=== PATIENT | male | born 1955 | race African-American/Black ===

== ENCOUNTER 2016-07-10 13:36 | Inpatient (IN) | payer MEDICARE, OTHER ==
--- NOTE | ~2016-07-10 | DS ---
Discharge Summary [facility] [address] [facility] [place]. [address] NAME: HALEY RESENDEZ JR : 51 STATUS : DIS IN PAT#: [id number] AGE: 60 ADM/REG DATE : 07/11/16 MR#: [id number] REPORT SERV DATE: 07/16/16 DICTATED BY: RAMYA ELLIOTT DATE: 07/15/16 REPORT STATUS : Draft TRANSCRIBED BY: MODErasto DATE: 07/15/16 ADMISSION DATE: 07/11/2016 DISCHARGE DATE: 07/15/2016 INDICATION FOR HOSPITALIZATION: Gross hematuria with clot retention. DISCHARGE DIAGNOSES: 1. End-stage renal disease, dialyzing Wednesday, Wednesday, Wednesday at [facility] by left forearm AV fistula. 2. Gross hematuria due to clot retention. 3. Recent cystoscopy with transitional cell cancer of bladder removal on 07/07/2016. 4. Peripheral vascular disease, status post right lower extremity iliac stent. 5. Coronary artery disease, CABG x5 vessels, 2007. 6. Type 2 diabetes mellitus. 7. Anemia. 8. History of bladder cancer. 9. Osteoarthritis. 10.Remote pneumonia. 11.Remote myocardial infarction, 2006. 12.Neuropathy. 13.Dyslipidemia. HOSPITAL COURSE: Mr. Resendez is a 60-year-old male, who is currently dialyzed on Wednesday, Wednesday, Wednesday at [facility] by left forearm AV fistula. He had recently undergone a cystoscopy with transitional cell cancer removed from his bladder on 07/07/2016. He apparently had persistent postop bleeding and was admitted with gross hematuria and clot retention. Dr. Vicente performed cysto with clot evacuation on 07/10/2016 and the retained clot, approximately 250-300 mL, was discarded. He began continuous bladder irrigation and this persisted until there was clearing on 07/15/2016. The catheter was subsequently removed, and he was felt stable for release. During the hospitalization, he tolerated procedures well, including hemodialysis, which was done without heparin therapy. His discharge labs reveal predialysis potassium of 5.3, creatinine 8.85, glucose 132, phosphorus 8.3. Hemoglobin 9.9, WBC 10.4, platelet count 238. DISCHARGE FOLLOWUP: Follow up with Urology as desired. Follow up on dialysis as scheduled. DISCHARGE MEDICATIONS: Amlodipine 10 mg p.o. daily, Lipitor 10 mg q.h.s., Coreg 25 mg p.o. b.i.d., vitamin D 3000 units daily, Neurontin 800 mg three times daily, Glucotrol 10 mg q.h.s., Theragran-M one daily, Renvela 800 mg tablets two with meals. DIET: 2000-calorie ADA renal diet with 1500 mL fluid restriction. ACTIVITY: Will resume per home routine. Discharge Summary [address] [address] NAME: HALEY RESENDEZ : 51 STATUS : DIS IN PAT#: [id number] AGE: 60 ADM/REG DATE : 07/11/16 MR#: [id number] REPORT SERV DATE: 07/16/16 DICTATED BY: RAMYA ELLIOTT DATE: 07/15/16 REPORT STATUS : Draft TRANSCRIBED BY: LETIICA DATE: 07/15/16 ELSA/LETICIA Ramya Elliott M.D. / [id number] CC: Ramya Elliott M.D.
--- NOTE | ~2016-07-10 | HP ---
History And Physical [facility] [address] [place]. [address] NAME: HALEY RESENDEZ JR : 51 STATUS : ADM Jessica PAT#: [id number] AGE: 60 ADM/REG DATE : 07/10/16 MR#: [id number] REPORT SERV DATE: 07/10/16 DICTATED BY: SPARKLE MARVIN DATE: 07/10/16 REPORT STATUS : Draft TRANSCRIBED BY: MODL DATE: 07/10/16 DATE OF ADMISSION: 07/10/2016 CHIEF COMPLAINT: Hematuria. HISTORY OF PRESENT ILLNESS: The patient is a 60-year-old male. He has a past medical history significant for end-stage renal disease, on dialysis Wednesday, Wednesday, Wednesday. He also has a history of coronary disease, status post bypass five to six years ago. He also has diabetes. He presents today for admission postprocedure for hematuria. He is followed by Dr. Vicente, his urologist. On 07/07/2016, he underwent cystoscopy for tumor removal, transitional cell cancer of the bladder. He presented to Dr. Vicente with continued bleeding postprocedure and was admitted for corrective surgery. The patient is currently back in the room on bladder irrigation without any complaints. He states, his dialysis has been going well. He normally gets dialysis Wednesday, Wednesday, and Wednesday, and states he had dialysis today without incident. He has not had any active chest pain complains. Blood sugars have been stable. PAST MEDICAL HISTORY: As covered above. PAST SURGICAL HISTORY: CABG and a fistula placement. HOME MEDICATIONS: Norvasc 10, Lipitor 10, Coreg 25 b.i.d., vitamin D 1000 three at bedtime, Neurontin 800 t.i.d., Glucotrol 10 at bedtime, multivitamin one per day, Renvela 800 with meals. ALLERGIES: NONE. FAMILY HISTORY: Both parents . He believes his father was on dialysis. He is not certain, what his mother passed from. SOCIAL HISTORY: He will drink one beer every two to three days. Previous smoker, quit at the time of his CABG. REVIEW OF SYSTEMS: HEENT: No headache, dizziness, chest pain, palpitations, shortness of breath, cough. He has had some mild bladder pain and hematuria. Otherwise, review of systems 14 point is negative. PHYSICAL EXAMINATION: VITAL SIGNS: Currently pending. GENERAL: He is awake, alert, oriented, no acute distress. HEENT: Normocephalic, atraumatic. Sclerae, nonicteric. NECK: Supple. HEART: Regular rate and rhythm. LUNGS: Clear to auscultation. ABDOMEN: Nontender, nondistended. Positive bowel sounds. History And Physical [address] [address] NAME: HALEY RESENDEZ JR : 51 STATUS : ADM Jessica PAT#: [id number] AGE: 60 ADM/REG DATE : 07/10/16 MR#: [id number] REPORT SERV DATE: 07/10/16 DICTATED BY: SPARKLE MARVIN DATE: 07/10/16 REPORT STATUS : Draft TRANSCRIBED BY: LETICIA DATE: 07/10/16 EXTREMITIES: No clubbing, cyanosis, or edema. LABORATORY DATA: Sodium 139, potassium 4.1, chloride 99, CO2 of 28, BUN and creatinine of 57 and 6.75 with a glucose of 189. Last CBC available was on 07/07/2016, white count 10.7, H and H 13.4 and 42.9, with platelets of 256. ASSESSMENT: Hematuria, postprocedure. PLAN: The patient has already returned from cystoscopy, stable. We will place him on a diabetic diet. Sliding scale insulin if needed. Continue his home medications. Appreciate Renal and Urology input. GRZEGORZ/LETICIA Sparkle Marvin M.D. / [id number] CC: Sparkle Marvin M.D.
--- NOTE | ~2016-07-10 | OP ---
Record Of Operation [facility] [address] [place]. [address] NAME: HALEY RESENDEZ JR : 51 STATUS : ADM Jessica PAT#: [id number] AGE: 60 ADM/REG DATE : 07/10/16 MR#: [id number] REPORT SERV DATE: 07/10/16 DICTATED BY: JUAN KESSLER DATE: 07/10/16 REPORT STATUS : Draft TRANSCRIBED BY: MODL DATE: 07/10/16 DATE OF PROCEDURE: 07/10/2016 PREOPERATIVE DIAGNOSIS: Gross hematuria, clot retention, post TUR bladder tumor. POSTOPERATIVE DIAGNOSIS: Gross hematuria, clot retention, post TUR bladder tumor. PROCEDURES: 1. Cysto with clot evacuation. 2. Cath placement, complex. ANESTHESIA: General endotracheal. SURGEON: Juan Kessler M.D. SPECIMENS: Retained clot (discarded) approximately 250 to 300 mL. DRAINS: One #24, 5 mL three-way Arriaga catheter. IMMEDIATE POSTOP: Stable. DESCRIPTION OF PROCEDURE: The patient was brought in to the cysto suite, given inhalational anesthetic, and placed in lithotomy position. Perineum and genitalia were prepped and draped in sterile fashion. Video cystourethroscopy was then performed using #22 cystoscope and Foroblique lens. Distal urethra was normal. There was an elevated bladder neck, but no evidence of prostatic urethral trauma. The scope was then passed into the bladder. A large volume of retained clot was noted. The clot was evacuated using Ellik evacuators until the irrigant changed from "Port wine" colored to light pink. The scope was then reintroduced. The bladder was carefully inspected. Sites of the resection of the small bladder tumors were intact with no evidence of bladder perforation whatsoever. No more retained clot. At this point, a 0.35 Sensor wire was passed into the bladder and the cystoscope was removed. A #24, three-way Arriaga catheter with 5 mL balloon was then passed over the wire into the bladder with return of pink to clear drainage. The balloon was inflated. Catheter irrigated well confirming proper positioning. The wire was removed and the catheter was hooked to a three-way irrigation. Irrigant returned light pink. The patient was then awakened and sent to recovery in stable condition. MS/LETICIA Juan Kessler M.D. / [id number] Record Of [address] [place]. [address] NAME: HALEY RESENDEZ JR : 51 STATUS : ADM Jessica PAT#: [id number] AGE: 60 ADM/REG DATE : 07/10/16 MR#: [id number] REPORT SERV DATE: 07/10/16 DICTATED BY: JUAN KESSLER DATE: 07/10/16 REPORT STATUS : Draft TRANSCRIBED BY: MODL DATE: 07/10/16 CC: Keo Wagner M.D.
[~2016-07-10 13:36] MED LIST: *UNABLE3; ACCUNEB INH; AMLODIPINE PO; ASA5GR PO; ATORVASTATIN PO; BUM1 PO; CARVEDILOL PO; COREG25 PO; DIABETA5 PO; FERROUS SULF325 M1 PO; FOLIC PO; GLIPIZIDE PO; GLUCOTRO10 PO; LEVITRA2.5 MG PO; LIPITOR10 PO; LISINOPRIL40 MG PO; NAPRELAN500 MG PO; NEUR800 PO; NORV10 PO; NORV5 PO; PLAVIX PO; PRAVACHOL40 MG PO; RENVELA800 MG PO; SPIRIVA INH; THERGRANM PO; TRIGLYCERIDE PO; VENTOLIN HFA INH; VITAMIN D31000 UNIT PO
[2016-07-10 15:00] LABS: A/G RATIO 0.6 (0.7-1.9); ALBUMIN 3.4 G/DL (3.5-5.0); BUN (BLOOD UREA NITROGEN) 57 MG/DL (6-23); CALCIUM, SERUM 9.1 MG/DL (8.5-10.4); CHLORIDE, SERUM 99 MMOL/L (96-112); CO2 (CARBON DIOXIDE) 28 MMOL/L (24-34); CREATININE 6.75 MG/DL (0.70-1.30); GFR AFRICAN AMERICAN 9 ML/MIN (>=60); GFR NON AFRICAN AMERICAN 8 ML/MIN (>=60); GLOBULIN 5.6 G/DL (2.5-4.1); POTASSIUM, SERUM 4.1 MMOL/L (3.5-5.3); SGOT(AST) 21 U/L (5-40); SGPT(ALT) 34 U/L (5-65); SODIUM, SERUM 139 MMOL/L (135-148); TOTAL BILIRUBIN 0.4 MG/DL (0-1.2)
[2016-07-10 15:01] LABS: ALKALINE PHOSPHATASE 141 U/L (45-117); GLUCOSE, SERUM 189 MG/DL (60-99)
[2016-07-11 06:48] LABS: BASOPHILS 0.2 %; BASOPHILS ABSOLUTE 0.02 10/3/uL (0.0-0.16); EOSINOPHILS 1.7 %; EOSINOPHILS ABSOLUTE 0.19 10/3/uL (0.0-0.53); HEMOGLOBIN 11.8 g/dL (13.6-17.8); IMMATURE GRANULOCYTES 0.4 %; IMMATURE GRANULOCYTES ABSOLUTE 0.04 10/3/uL (0.0-0.11); LYMPHOCYTES 10.5 %; LYMPHOCYTES ABSOLUTE 1.19 10/3/uL (0.67-4.30); MEAN CORPUS HGB CONC 31.5 g/dL (32.0-36.0); MEAN CORPUSCULAR HEMOGLOB 27.4 pg (26.0-34.0); MEAN CORPUSCULAR VOLUME 87.2 fL (80-100); MEAN PLATELET VOLUME 10.3 fL (9.2-13.0); MONOCYTES 11.2 %; MONOCYTES ABSOLUTE 1.26 10/3/uL (0.21-1.20); NEUTROPHILS ABSOLUTE 8.59 10/3/uL (2.02-8.40); PLATELET COUNT 232 10/3/uL (150-400); RBC DISTRIBUTION WIDTH 17.6 % (12.0-16.0); WHITE BLOOD CELLS 11.3 10/3/uL (4.5-10.5)
[2016-07-11 06:51] LABS: HEMATOCRIT 37.5 % (40.0-51.0); MANUAL DIFF NO %
[2016-07-11 07:09] LABS: INTERNATIONAL NORMAL RATI 1.3 UNITS (-); PROTIME (NOT ORD) 15.7 SEC (12.0-14.5)
[2016-07-11 07:11] LABS: ALBUMIN 3.1 G/DL (3.5-5.0); CALCIUM, SERUM 8.7 MG/DL (8.5-10.4); CHLORIDE, SERUM 98 MMOL/L (96-112); CO2 (CARBON DIOXIDE) 31 MMOL/L (24-34); POTASSIUM, SERUM 4.4 MMOL/L (3.5-5.3); SODIUM, SERUM 137 MMOL/L (135-148)
[2016-07-11 07:14] LABS: BUN (BLOOD UREA NITROGEN) 77 MG/DL (6-23); GFR AFRICAN AMERICAN 7 ML/MIN (>=60); GFR NON AFRICAN AMERICAN 6 ML/MIN (>=60); GLUCOSE, SERUM 63 MG/DL (60-99); PHOSPHORUS, SERUM 6.3 MG/DL (2.5-4.5)
[2016-07-13 13:26] LABS: BASOPHILS 0.2 %; BASOPHILS ABSOLUTE 0.02 10/3/uL (0.0-0.16); EOSINOPHILS 1.9 %; EOSINOPHILS ABSOLUTE 0.18 10/3/uL (0.0-0.53); HEMOGLOBIN 9.7 g/dL (13.6-17.8); IMMATURE GRANULOCYTES 0.5 %; IMMATURE GRANULOCYTES ABSOLUTE 0.05 10/3/uL (0.0-0.11); LYMPHOCYTES 12.2 %; LYMPHOCYTES ABSOLUTE 1.15 10/3/uL (0.67-4.30); MEAN CORPUS HGB CONC 31.9 g/dL (32.0-36.0); MEAN CORPUSCULAR HEMOGLOB 27.2 pg (26.0-34.0); MEAN CORPUSCULAR VOLUME 85.2 fL (80-100); MEAN PLATELET VOLUME 9.8 fL (9.2-13.0); MONOCYTES 6.2 %; MONOCYTES ABSOLUTE 0.59 10/3/uL (0.21-1.20); NEUTROPHILS ABSOLUTE 7.47 10/3/uL (2.02-8.40); PLATELET COUNT 201 10/3/uL (150-400); RBC DISTRIBUTION WIDTH 16.7 % (12.0-16.0); RED CELL COUNT 3.57 10/6/uL (4.7-6.1); WHITE BLOOD CELLS 9.5 10/3/uL (4.5-10.5)
[2016-07-13 13:27] LABS: HEMATOCRIT 30.4 % (40.0-51.0); MANUAL DIFF NO %
[2016-07-13 13:41] LABS: ALBUMIN 2.6 G/DL (3.5-5.0); CALCIUM, SERUM 8.4 MG/DL (8.5-10.4); CHLORIDE, SERUM 98 MMOL/L (96-112); SODIUM, SERUM 134 MMOL/L (135-148)
[2016-07-13 13:42] LABS: BUN (BLOOD UREA NITROGEN) 121 MG/DL (6-23); CO2 (CARBON DIOXIDE) 24 MMOL/L (24-34); CREATININE 9.89 MG/DL (0.70-1.30); GFR AFRICAN AMERICAN 6 ML/MIN (>=60); GFR NON AFRICAN AMERICAN 5 ML/MIN (>=60); GLUCOSE, SERUM 177 MG/DL (60-99); PHOSPHORUS, SERUM 7.7 MG/DL (2.5-4.5)
[2016-07-14 06:39] LABS: CALCIUM, SERUM 9.3 MG/DL (8.5-10.4); CHLORIDE, SERUM 102 MMOL/L (96-112); CO2 (CARBON DIOXIDE) 24 MMOL/L (24-34); GLUCOSE, SERUM 150 MG/DL (60-99); POTASSIUM, SERUM 4.8 MMOL/L (3.5-5.3); SODIUM, SERUM 139 MMOL/L (135-148)
[2016-07-14 06:46] LABS: ALBUMIN 3.2 G/DL (3.5-5.0); BUN (BLOOD UREA NITROGEN) 71 MG/DL (6-23); GFR AFRICAN AMERICAN 8 ML/MIN (>=60); GFR NON AFRICAN AMERICAN 7 ML/MIN (>=60)
[2016-07-14 07:09] LABS: HEMOGLOBIN 10.8 g/dL (13.6-17.8); MEAN CORPUS HGB CONC 31.8 g/dL (32.0-36.0); MEAN PLATELET VOLUME 9.4 fL (9.2-13.0); PLATELET COUNT 202 10/3/uL (150-400); RED CELL COUNT 3.86 10/6/uL (4.7-6.1); WHITE BLOOD CELLS 10.2 10/3/uL (4.5-10.5)
[2016-07-14 07:14] LABS: MANUAL DIFF YES %; MEAN CORPUSCULAR VOLUME 88.1 fL (80-100)
[2016-07-14 08:11] LABS: EOSINOPHILS 1 %; LYMPHOCYTES 13 %; LYMPHOCYTES ABSOLUTE (CALC) 1.33 10/3/uL (0.67-4.30); METAMYELOCYTES 1 %; MONOCYTES 3 %; MONOCYTES ABSOLUTE (CALC) 0.31 10/3/uL (0.21-1.20); NEUTROPHILS ABSOLUTE (CALC) 8.36 10/3/uL (2.02-8.40); SEGMENTED NEUTROPHIL (0) 82 %; TOTAL NUCLEATED CELLS 100
[2016-07-14 08:12] LABS: ANISOCYTOSIS 1+ (5-10/OIF) (0-5/OIF); PLATELET ESTIMATE ADQ (ADEQUATE); POLYCHROMASIA 1+ (2-5/OIF) (0-1/OIF)
[2016-07-15 09:14] LABS: BASOPHILS 0.1 %; BASOPHILS ABSOLUTE 0.01 10/3/uL (0.0-0.16); EOSINOPHILS 1.4 %; EOSINOPHILS ABSOLUTE 0.15 10/3/uL (0.0-0.53); HEMOGLOBIN 9.9 g/dL (13.6-17.8); IMMATURE GRANULOCYTES 0.5 %; IMMATURE GRANULOCYTES ABSOLUTE 0.05 10/3/uL (0.0-0.11); LYMPHOCYTES 9.8 %; LYMPHOCYTES ABSOLUTE 1.02 10/3/uL (0.67-4.30); MEAN CORPUS HGB CONC 31.9 g/dL (32.0-36.0); MEAN CORPUSCULAR HEMOGLOB 27.4 pg (26.0-34.0); MEAN CORPUSCULAR VOLUME 85.9 fL (80-100); MEAN PLATELET VOLUME 10.5 fL (9.2-13.0); MONOCYTES 10.1 %; MONOCYTES ABSOLUTE 1.05 10/3/uL (0.21-1.20); NEUTROPHILS 78.1 %; NEUTROPHILS ABSOLUTE 8.09 10/3/uL (2.02-8.40); PLATELET COUNT 238 10/3/uL (150-400); RBC DISTRIBUTION WIDTH 16.8 % (12.0-16.0); RED CELL COUNT 3.61 10/6/uL (4.7-6.1); WHITE BLOOD CELLS 10.4 10/3/uL (4.5-10.5)
[2016-07-15 09:17] LABS: MANUAL DIFF NO %
[2016-07-15 09:44] LABS: BUN (BLOOD UREA NITROGEN) 102 MG/DL (6-23); CALCIUM, SERUM 9.4 MG/DL (8.5-10.4); CHLORIDE, SERUM 101 MMOL/L (96-112); CO2 (CARBON DIOXIDE) 25 MMOL/L (24-34); GLUCOSE, SERUM 132 MG/DL (60-99); POTASSIUM, SERUM 5.3 MMOL/L (3.5-5.3); SODIUM, SERUM 137 MMOL/L (135-148)
[2016-07-15 09:45] LABS: CREATININE 8.85 MG/DL (0.70-1.30); GFR AFRICAN AMERICAN 7 ML/MIN (>=60); GFR NON AFRICAN AMERICAN 6 ML/MIN (>=60); PHOSPHORUS, SERUM 8.3 MG/DL (2.5-4.5)
[2016-07-22] MEDS ORDERED: ACETSUP650 PR (16:44)
== END 2016-07-15 16:08 | disposition home or self-care (01) | DRG 919 ==
LOC: SDC 13:36 → 4SO 16:03
PROVIDERS: Nurse Practitioner; Registered Nurse; Urology
PROC: 0TCB8ZZ Extirpation of Matter from Bladder, Via Natural or Artificial Opening Endoscopic (ICD-10-PCS; principal; 2016-07-10 13:45)
PROC: 5A1D60Z (ICD-10-PCS; 2016-07-13)
DX: N99.840 Postprocedural hematoma of a genitourinary system organ or structure following a genitourinary system procedure (principal); N18.6 End stage renal disease; E11.22 Type 2 diabetes mellitus with diabetic chronic kidney disease; I12.0 Hypertensive chronic kidney disease with stage 5 chronic kidney disease or end stage renal disease; I25.10 Atherosclerotic heart disease of native coronary artery without angina pectoris; Z99.2 Dependence on renal dialysis; Z79.899 Other long term (current) drug therapy; Z87.891 Personal history of nicotine dependence; Z95.1 Presence of aortocoronary bypass graft; Z90.6 Acquired absence of other parts of urinary tract; D63.1 Anemia in chronic kidney disease; Z85.51 Personal history of malignant neoplasm of bladder; Z95.820 Peripheral vascular angioplasty status with implants and grafts; I25.2 Old myocardial infarction; E11.40 Type 2 diabetes mellitus with diabetic neuropathy, unspecified; E78.5 Hyperlipidemia, unspecified
CPT/HCPCS: 80053; 80069; 82962; 83735; 85025; 85610; 97161-GP; A9270-GY; G0257; G8978-CK-GP; G8979-CJ-GP; J0330; J0690; J2250; J2370; J3010; P9047; Q9958